=== PATIENT | female | born 1955 | race Two or more races ===

== ENCOUNTER → 2020-03-21 | Outpatient (CLI) | payer MEDICARE ==
--- NOTE | 2020-03-21 16:02 | RAD ---
Exam : Carotid Duplex with Grayscale Ultrasound and Spectral and Color Doppler Analysis 03/21/2020 3:58 PM Clinical Indications: Reason: CAROTID STENOSIS / Spl. Instructions: / History: Comparison study: None available. PQRS Compliance Statement - Stenosis calculations for CT, MR and conventional angiography are based upon measurement of the distal ICA diameter in accordance with the NASCET methodology. Stenosis calculations for carotid ultrasound studies are derived from validated velocity criteria which are known to correlate with the NASCET methodology. Findings: The common, internal and external carotid arteries were examined by grayscale, color and spectral Doppler ultrasound. Mild atherosclerotic plaquing is seen in the bilateral carotid bulbs without high-grade stenosis identified on color Doppler imaging. The following are the velocities and ratios in the carotid arteries on both sides: RIGHT ICA PV: 76cm/sec RIGHT CCA PV: 95cm/sec RIGHT ICA ED: 27cm/sec RIGHT IC/CCPV: Less than 2 RIGHT VERTEBRAL: antegrade flow LEFT ICA PV: 83cm/sec LEFT CCA PV: 101cm/sec LEFT ICA ED: 24cm/sec LEFT IC/CCPV: Less than 2 LEFT VERTEBRAL: antegrade flow <50% ICA Stenosis: PSV < 125cm/s (EDV < 40cm/s; SVR < 2.0) 50-69% ICA Stenosis: PSV < 125-229cm/s (EDV 40-99cm/s; SVR 2.0-3.9) >70% ICA Stenosis: PSV > 230cm/s (EDV >100cm/s; SVR >4.0) Impression: Mild atherosclerotic vascular disease, most prominently in the carotid bulbs with less than 50% stenosis of the bilateral internal carotid arteries by ultrasound criteria Electronically signed by: Osmin Barrera MD (03/21/2020 3:59 PM) [id number]
== END ==
LOC: US 13:32
PROVIDERS: ATTEND Family Medicine
DX: I65.23 Occlusion and stenosis of bilateral carotid arteries (principal)
CPT/HCPCS: 93880